=== PATIENT | male | born 1995 | race Two or more races ===

== ENCOUNTER 2020-12-24 13:55 | Emergency (ER) | payer SELFPAY ==
[~2020-12-24] VITALS: Ht 180.3 cm; Wt 89.1 kg
[2020-12-24 13:55] VITALS: BP 134/59
--- NOTE | 2020-12-24 14:24 | PHYS DOC ---
Adult General Chief Complaint Chief Complaint: SEXUALLY TRANSMITTED DISEASE HPI HPI Patient is a 25-year-old male who presents emergency department reporting he was told by his sexual partner today that she has gonorrhea chlamydia and that he should be treated. Patient states he had unprotected sex with her last Saturday. Patient denies any STI symptoms. Denies penile drip, itching, burning with urination or pain with urination, patient denies seeing blood in his urine. Patient denies testicular pain or testicular swelling. Patient denies any rashes or lesions to his penis or pubic area or scrotal sac. Patient denies any other physical complaints or physical concerns. Review of Systems Review of Systems 14 body systems of review of systems have been reviewed. See HPI for pertinent positives and negative responses, otherwise all other systems are negative, nonpertinent or noncontributory. Allergies Allergies Allergies Coded Allergies Type Severity Reaction Last Updated Verified No Known Drug Allergies 12/24/20 No Physical Exam Physical Exam Constitutional: Well developed, well nourished, no acute distress, non-toxic appearance. HENT: Normocephalic, atraumatic. Eyes: Conjunctiva normal, no discharge. Neck: Normal range of motion. Cardiovascular: No cyanosis appreciated, distal cap refill less than 2 seconds Lungs & Thorax: Patient in no respiratory distress, no audible adventitious lung sounds appreciated. Abdomen: Bowel sounds normal, soft, no tenderness, no masses, no pulsatile masses. Skin: Warm, dry, no erythema, no rash. Back: No tenderness, no CVA tenderness. Extremities: No tenderness, no cyanosis, no clubbing, ROM intact, no edema. Neurologic: Alert and oriented X 3, normal motor function, normal sensory function, no focal deficits noted. Psychologic: Affect normal, judgement normal, mood normal. EKG EKG [] Radiology/Procedures Radiology/Procedures [] Heart Score C/O Chest Pain: No Risk Factors: Risk Factors: DM, Current or recent (<one month) smoker, HTN, HLP, family history of CAD, obesity. Risk Scores: Risk Factors: DM, Current or recent (<one month) smoker, HTN, HLP, family history of CAD, obesity. Course & Med Decision Making Course & Med Decision Making Pertinent Labs and Imaging studies reviewed. (See chart for details) 25-year-old male, vital signs reviewed, presents emergency department chief complaint was told by sexual partner she has gonorrhea chlamydia and he should be treated. Patient has no symptoms, will order UA with GC chlamydia culture of urine, will empirically treat with 500 mg IM Rocephin, will send home with prescription for doxycycline hyclate 100 mg twice daily x7 days. Discussed with patient using barrier protection sex, strict need to fill prescription and take as directed, follow-up with primary care for healthcare needs, return to ER for precautions and concerns. Gave verbal understanding discharge home instructions, medication use, follow-up with primary care, return to ER precautions or concerns, was discharged home without incident. Dragon Disclaimer Dragon Disclaimer This electronic medical record was generated, in whole or in part, using a voice recognition dictation system. Departure Departure: Impression: Primary Impression: Exposure to sexually transmitted disease (STD) Disposition: HOME / SELF CARE / HOMELESS Condition: GOOD Referrals: PCP,NO (PCP) Patient Instructions: Sexuality and Disability Additional Instructions: You were seen today in the emergency department because your sexual partner told you she had gonorrhea and chlamydia. You did not have any symptoms today. I am treating you empirically with 500 mg Rocephin intramuscular injection, I am prescribing you doxycycline to take twice a day for the next 7 days. It is very important that you fill this prescription immediately and take as directed until the prescription is completed. Please refrain from having sexual intercourse until after antibiotic course has been completed. Please use barrier protection sex in the future to prevent sexually transmitted disease infections. Please follow-up with a primary health care physician for ongoing problems, you may use any primary health care provider of your choice, you may use the [facility] at [address] [place] [address] [place] [address] telephone number [phone]. Please return the emergency department for worsening symptoms or other concerns. EMERGENCY DEPARTMENT GENERAL DISCHARGE INSTRUCTIONS Thank you for coming to [facility] ([facility]) today and trusting us with you care. We trust that you had a positivie experience in our Emergency Department. If you wish to speak to the department management, you may call the director at [phone]. YOUR FOLLOW UP INSTRUCTIONS ARE FOLLOWS: 1. Do you have a private Doctor? If you do not have a private doctor, please ask for a resource list of physicians or clinics that may be able to assist you with follow up care. 2. The Emergency Physician has interpreted your x-rays. The X-Ray specialist will also review them. If there is a change in the findings, you will be notified in 48 hours when at all possible. 3. A lab test or culture has been done, your results will be reviewed and you will be notified if you need a change in treatment. ADDITIONAL INSTRUCTIONS AND INFORMATION: 1. Your care today has been supervised by a physician who is specially trained in emergency care. Many problems require more than one evaluation for a complete diagnosis and treatment. We recommend that you schedule your follow up appointment as recommended to ensure complete treatment of you illness or injury. If you are unable to obtain follow up care and continue to have a problem, or if your condition worsens, we recommend that you return to the ED. 2. We are not able to safely determine your condition over the phone nor are we able to give sound medical advice over the phone. For these safety reasons, if you call for medical advice we will ask you to come to the ED for further evaluation. 3. If you have any questions regarding these discharge instructions please call the ED at [phone]. SAFETY INFORMATION: In the interest of safety, wellness, and injury prevention; we encourage you to wear your sealbelt, if you smoke; quite smoking, and we encourage family to use a protective helmet for bicycling and other sporting events that present an increased risk for head injury. IF YOUR SYMPTOMS WORSEN OR NEW SYMPTOMS DEVELOP, OR YOU HAVE CONCERNS ABOUT YOUR CONDITION; OR IF YOUR CONDITION WORSENS WHILE YOU ARE WAITING FOR YOUR FOLLOW UP APPOINTMENT; EITHER CONTACT YOUR PRIMARY CARE DOCTOR, THE PHYSICIAN WHOSE NAME AND NUMBER YOU WERE GIVEN, OR RETURN TO THE ED IMMEDIATELY. Scripts Doxycycline Hyclate (DOXYCYCLINE HYCLATE) 100 Mg Capsule 1 CAP PO BID for STI, #14 CAP 0 Refills Prov: RA MARTINEZ APRN 12/24/20 RA MARTINEZ APRN Dec 24, 2020 14:24
[2020-12-24] MEDS ORDERED: LIDOCAINE 1% Multi-Dose 20 ML VIAL. ONE (14:40)
[2020-12-24] MEDS ORDERED: cefTRIAXone IM 500 MG VIAL. IM ONE ×2 (14:40→14:45)
[2020-12-24] MEDS ORDERED: DOXY100C2 PO (14:45)
[2020-12-24 14:58] LABS: BILIRUBIN,URINE NEG (NEG); CLARITY,URINE HAZY; COLOR,URINE YELLOW; GLUCOSE,URINE NEG (NEG)
[2020-12-24 14:59] LABS: AMORPHOUS SEDIMENT,UR PRESENT /HPF; BACTERIA,URINE 0 /HPF (0-FEW); NITRITE,URINE NEG (NEG); RBC,URINE 0 /HPF (0-2); UROBILINOGEN,URINE 0.2 mg/dL (0.2 mg/dL); WBC,URINE 0 /HPF (0-4)
== END 2020-12-24 14:47 | disposition home or self-care (01) ==
LOC: ER 13:55
DX: A64 Unspecified sexually transmitted disease (principal)
CPT/HCPCS: 36415; 81001; 87491; 87591; 96372; 99283; J0696